=== PATIENT | male | born 1935 | race Caucasian/White ===

== ENCOUNTER 2023-06-21 13:03 | Inpatient (IN) | payer OTHER, MEDICAID ==
[~2023-06-21] VITALS: Ht 162.6 cm; Wt 68.0 kg
[2023-06-21] MEDS ORDERED: PROP10TA10 PO (13:37)
[2023-06-21] MEDS ORDERED: NA P133E RC (13:37)
[2023-06-21] MEDS ORDERED: CLOP75TA33 PO (13:37)
[2023-06-21] MEDS: IV NORMAL SALINE 500 ML BAG IV ONE (13:37)
[2023-06-21] MEDS ORDERED: MULT-225 PO (13:37)
[2023-06-21] MEDS ORDERED: LISI1TAB55 PO (13:37)
[2023-06-21] MEDS ORDERED: ASPI81TA31 PO (13:37)
[2023-06-21] MEDS ORDERED: MAGN400O6 PO (13:37)
[2023-06-21] MEDS ORDERED: ATOR80TA PO (13:37)
[2023-06-21] MEDS ORDERED: SITA100T PO (13:37)
[2023-06-21] MEDS ORDERED: ACET-2154 PO (13:37)
[2023-06-21] MEDS ORDERED: ESCI5TAB PO (13:37)
[2023-06-21] MEDS ORDERED: FELO10TA44 PO (13:37)
[2023-06-21] MEDS ORDERED: METF-442 PO (13:37)
[2023-06-21] MEDS ORDERED: HYDR-894 PO (13:37)
[2023-06-21] MEDS ORDERED: BALS60OI TP (13:37)
[2023-06-21] MEDS ORDERED: ASCO500C18 PO (13:37)
[2023-06-21 13:43] LABS: BASOPHILS % (AUTO) 0.4 % (0.0-2.0); EOSINOPHILS # (AUTO) 0.4 K/uL (0.0-0.7); EOSINOPHILS % (AUTO) 4.6 % (0.0-7.0); HEMATOCRIT 39.1 % (36.7-47.1); HEMOGLOBIN 13.3 g/dL (12.5-16.3); LYMPHOCYTES # (AUTO) 1.6 K/uL (0.8-4.8); LYMPHOCYTES % (AUTO) 16.3 % (20.5-51.5); MEAN CORPUSCULAR HEMOGLOBIN 29.2 uug (23.8-33.4); MEAN CORPUSCULAR HGB CONC 34 g/dL (32.5-36.3); MEAN CORPUSCULAR VOLUME 85.9 fL (73.0-96.2); MONOCYTES % (AUTO) 10.7 % (0.0-11.0); NEUTROPHILS # (AUTO) 6.6 K/uL (1.8-8.9); PLATELET COUNT (AUTO) 191 K/uL (152-348); RED BLOOD CELL COUNT(AUTO) 4.56 MIL/uL (4.06-5.63); RED CELL DISTRIBUTION WIDTH 15.6 % (12.1-16.2); WHITE BLOOD COUNT (AUTO) 9.8 K/uL (3.6-10.2)
[2023-06-21 13:45] LABS: *BILIRUBIN,URIN NEGATIVE (NEGATIVE); *BLOOD, URINE NEGATIVE (NEGATIVE); *CLARITY,URINE CLEAR (CLEAR); *COLOR,URINE YELLOW (YELLOW); *KETONES,URINE 1+ (NEGATIVE); *PROTEIN,URINE NEGATIVE (NEGATIVE); *UROBILINOGEN,URINE 0.2 E.U./dl (NORMAL); LEUKOCYTE ESTERASE ,URINE NEGATIVE (NEGATIVE); NITRITE, URINE NEGATIVE (NEGATIVE); PH,URINE 5.5 (5.0-8.0); UGLUCOSE NEGATIVE (NEGATIVE)
[2023-06-21 13:47] LABS: DIFFERENTIAL COMMENT 1
[2023-06-21] MEDS ORDERED: ONDANSETRON 4 MG/2 ML VIAL ONE (13:52)
[2023-06-21 13:59] LABS: ALANINE AMINOTRANSFERASE 12 U/L (16-63); ALBUMIN 3.3 g/dL (3.4-5.0); ALKALINE PHOSPHATASE 94 U/L (50-136); ASPARTATE AMINOTRANSFERASE 11 U/L (15-37); BILIRUBIN,DIRECT 0.2 mg/dL (0.0-0.2); BILIRUBIN,TOTAL 0.9 mg/dL (0.2-1.0); CARBON DIOXIDE 26 mmol/L (21-32); CHLORIDE 105 mmol/L (98-107); CREATININE 1.1 mg/dL (0.6-1.3); GLUCOSE 137 mg/dL (74-106); POTASSIUM 3.9 mmol/L (3.5-5.1); SODIUM SERUM 140 mmol/L (136-145); TOTAL PROTEIN, SERUM 7.2 g/dL (6.4-8.2); UREA NITROGEN, BLOOD 36 mg/dL (7-18)
[2023-06-21 14:34] LABS: BACTERIA,URINE NONE SEEN /HPF (NONE SEEN); RBC,URINE NONE SEEN /HPF (0-3); SQUAMOUS EPITHELIAL CELL,UR FEW /HPF (NONE SEEN); WBC,URINE 0-3 /HPF (0-3)
[2023-06-21 14:53] LABS: BAND % (MANUAL) 2 % (0-10); EOSINOPHILS % (MANUAL) 4 % (0-8); LYMPHOCYTES % (MANUAL) 15 % (20-40); MONOCYTES % (MANUAL) 9 % (2-10); NEUTROPHILS % (MANUAL) 70 % (42-75)
[2023-06-21 14:54] LABS: ANISOCYTOSIS 1+; PLATELET ESTIMATE ADEQUATE
[2023-06-21] MEDS ORDERED: IOHEXOL 350 100 ML INFUS..BTL ONE (15:07)
[2023-06-21] MEDS ORDERED: IV NORMAL SALINE 250 ML IV ONE (15:07)
[2023-06-21] MEDS ORDERED: SWABABLE VALVE TRANSFER SET EA MC ONE (15:07)
[2023-06-21] MEDS ORDERED: ASPIRIN 81 MG TAB.CHEW ONE (15:37)
[2023-06-21] MEDS: IV NORMAL SALINE 1000 ML BAG IV ONE (15:38)
[2023-06-21] MEDS: ASPIRIN 81 MG TAB.CHEW PO ONE (15:38)
[2023-06-21] MEDS ORDERED: FLEET ENEMA 133 ML BOTTLE RC PRN (18:30)
[2023-06-21] MEDS ORDERED: ONDANSETRON 4 MG/2 ML VIAL IV PRN (18:30)
[2023-06-21] MEDS ORDERED: REMEDY ESSENTIAL ZINC PASTE 113 GM TP PRN (18:30)
[2023-06-21] MEDS ORDERED: ACETAMINOPHEN 325 MG TABLET PO PRN (18:30)
[2023-06-21] MEDS ORDERED: MAGNESIUM HYDROXIDE 30 ML LIQUID UDC PO PRN ×2 (18:30)
[2023-06-21] MEDS ORDERED: Medication Not On Formulary EA (Atorvastatin Calcium (Lipitor) 80 MG) PO SCH (21:00)
[2023-06-21 23:11] VITALS: BP 169/80; TEMP 98.2; O2SAT 96
[2023-06-22 05:33] VITALS: BP 142/67; TEMP 98.3; O2SAT 98
[2023-06-22 07:19] LABS: BASOPHILS % (AUTO) 0.5 % (0.0-2.0); EOSINOPHILS # (AUTO) 0.4 K/uL (0.0-0.7); EOSINOPHILS % (AUTO) 5.3 % (0.0-7.0); HEMATOCRIT 34.3 % (36.7-47.1); HEMOGLOBIN 11.6 g/dL (12.5-16.3); LYMPHOCYTES # (AUTO) 1.4 K/uL (0.8-4.8); LYMPHOCYTES % (AUTO) 21.1 % (20.5-51.5); MEAN CORPUSCULAR HEMOGLOBIN 29.6 uug (23.8-33.4); MEAN CORPUSCULAR HGB CONC 34 g/dL (32.5-36.3); MEAN CORPUSCULAR VOLUME 87.8 fL (73.0-96.2); MONOCYTES # (AUTO) 0.7 K/uL (0.1-1.30); MONOCYTES % (AUTO) 10.8 % (0.0-11.0); NEUTROPHILS # (AUTO) 4.2 K/uL (1.8-8.9); NEUTROPHILS % (AUTO) 62.3 % (38.5-71.5); PLATELET COUNT (AUTO) 101 K/uL (152-348); RED CELL DISTRIBUTION WIDTH 15.5 % (12.1-16.2); WHITE BLOOD COUNT (AUTO) 6.8 K/uL (3.6-10.2)
[2023-06-22 07:27] LABS: CALCIUM 8.1 mg/dL (8.5-10.1); CARBON DIOXIDE 23 mmol/L (21-32); CHLORIDE 109 mmol/L (98-107); CREATININE 0.8 mg/dL (0.6-1.3); GLUCOSE 94 mg/dL (74-106); MAGNESIUM 1.7 mg/dL (1.8-2.4); PHOSPHOROUS 2.7 mg/dL (2.5-4.9); POTASSIUM 3.5 mmol/L (3.5-5.1); SODIUM SERUM 142 mmol/L (136-145); UREA NITROGEN, BLOOD 24 mg/dL (7-18)
[2023-06-22 08:05] LABS: DIFFERENTIAL COMMENT 1
[2023-06-22] MEDS: ASPIRIN 81 MG TAB.CHEW PO SCH (08:27)
[2023-06-22] MEDS: ESCITALOPRAM OXALATE 10 MG TABLET PO SCH (08:27)
[2023-06-22] MEDS: CLOPIDOGREL 75 MG TABLET PO SCH (08:27)
[2023-06-22] MEDS: PROPRANOLOL HCL 10 MG TABLET PO SCH (08:27)
[2023-06-22] MEDS: LINAGLIPTIN 5 MG TABLET PO SCH (08:27)
[2023-06-22] MEDS: FELODIPINE 2.5 MG TAB.SR.24H PO SCH (08:28)
[2023-06-22] MEDS ORDERED: DEXTROSE 50% 50 ML DISP.SYRIN IV PRN (09:45)
[2023-06-22] MEDS ORDERED: INSULIN REGULAR, HUMAN 300 UNITS/3 ML VIAL SQ PRN (09:45)
[2023-06-22] MEDS: MAGNESIUM OXIDE 400 MG TABLET PO ONE (10:32)
[2023-06-22] MEDS: BLOOD SUGAR DIAGNOSTIC 1 EACH STRIP VI SCH (11:45)
[2023-06-22 12:05] VITALS: BP 141/50; TEMP 97.3; O2SAT 99
[2023-06-22] MEDS: BOOST PLUS 237 ML LIQUID (VERY VANILLA) PO SCH (13:34)
[2023-06-22 15:08] VITALS: BP 110/62; TEMP 98.5
[2023-06-22] MEDS: GLUCERNA SHAKE 237 ML CAN PO SCH (17:30)
[2023-06-22 17:34] LABS: BAND % (MANUAL) 8 % (0-10); EOSINOPHILS % (MANUAL) 5 % (0-8); LYMPHOCYTES % (MANUAL) 20 % (20-40); MONOCYTES % (MANUAL) 9 % (2-10); NEUTROPHILS % (MANUAL) 57 % (42-75)
[2023-06-22 17:35] LABS: ANISOCYTOSIS 1+; PLATELET ESTIMATE DECREASED
[2023-06-22 20:00] VITALS: TEMP 98.3
[2023-06-22] MEDS: ATORVASTATIN 40 MG TABLET PO SCH (22:43)
[2023-06-23 05:04] VITALS: TEMP 97.6
[2023-06-23] MEDS: CLONIDINE HCL 0.1 MG TABLET PO PRN (05:11)
[2023-06-23 06:48] LABS: CALCIUM 8.3 mg/dL (8.5-10.1); CARBON DIOXIDE 25 mmol/L (21-32); CHLORIDE 103 mmol/L (98-107); CREATININE 0.7 mg/dL (0.6-1.3); GLUCOSE 124 mg/dL (74-106); MAGNESIUM 1.7 mg/dL (1.8-2.4); POTASSIUM 3.4 mmol/L (3.5-5.1); SODIUM SERUM 139 mmol/L (136-145); UREA NITROGEN, BLOOD 17 mg/dL (7-18)
[2023-06-23] MEDS: POTASSIUM CHLORIDE 20 MEQ TAB.PRT.SR PO ONE (10:51)
[2023-06-23] MEDS: MAGNESIUM OXIDE 400 MG TABLET PO ONE (10:52)
[2023-06-23 11:21] VITALS: BP 139/51; TEMP 97.6; O2SAT 98
[2023-06-23] MEDS: INSULIN REGULAR, HUMAN 300 UNIT/3 ML VIAL SQ PRN (11:45)
[2023-06-23 15:04] VITALS: BP 144/57; TEMP 98.4; O2SAT 99
[2023-06-23 17:28] VITALS: BP 155/81
== END 2023-06-23 18:30 | disposition home health service (06) | DRG 304 ==
LOC: ER 13:03 → TELE3 21:20 → MEDSURG3 21:22
PROVIDERS: ADMIT Internal Medicine; ATTEND Internal Medicine
DX: I16.0 Hypertensive urgency (principal); G93.41 Metabolic encephalopathy; N17.0 Acute kidney failure with tubular necrosis; G45.9 Transient cerebral ischemic attack, unspecified; E44.0 Moderate protein-calorie malnutrition; F03.93 Unspecified dementia, unspecified severity, with mood disturbance; E86.0 Dehydration; Z68.25 Body mass index [BMI] 25.0-25.9, adult; G25.0 Essential tremor; Z66 Do not resuscitate; G93.89 Other specified disorders of brain; I69.398 Other sequelae of cerebral infarction; R26.89 Other abnormalities of gait and mobility; E88.09 Other disorders of plasma-protein metabolism, not elsewhere classified; E83.51 Hypocalcemia; E83.42 Hypomagnesemia; E78.5 Hyperlipidemia, unspecified; E11.51 Type 2 diabetes mellitus with diabetic peripheral angiopathy without gangrene; D64.9 Anemia, unspecified; Z95.828 Presence of other vascular implants and grafts; Z79.84 Long term (current) use of oral hypoglycemic drugs; Z79.02 Long term (current) use of antithrombotics/antiplatelets; I65.21 Occlusion and stenosis of right carotid artery; Z79.899 Other long term (current) drug therapy
CPT/HCPCS: 36415; 70030-TC; 70450; 70496; 71045; 83735; 84100; 84484; 85025; 85730; 86850; 86900; 86901; 93005; A4663; A6213; C1758; G0378; J1815; J2405; J7040; Q9967